=== PATIENT | male | born 1995 | race Caucasian/White ===

== ENCOUNTER 2018-04-13 16:55 | Emergency (ER) | payer BC ==
[2018-04-13 17:21] VITALS: BP 147/91; PULSE 89; RESP 20; TEMP 98.7
[2018-04-13] MEDS ORDERED: CEPHALEXIN 500MG STARTER PACK 4 CAP BTL PO STA (18:34)
[2018-04-13] MEDS ORDERED: SULFAMETH-TMP DS STARTER PACK 2 TAB BTL PO STA (18:35)
--- NOTE | 2018-04-13 18:50 | ED ---
General Adult HPI - General Chief complaint: Skin/Abscess/Foreign Body Stated complaint: Knee Infection, Pain Time Seen by Provider: 04/13/18 17:45 Source: patient, RN notes reviewed Mode of arrival: ambulatory Limitations: no limitations - History of Present Illness Initial comments: 22-year-old male presents for abscess on the right knee 4 days. Patient states this started as a "ingrown hair." He states that over the past couple days it has worsened. He states today it started to have spreading redness surrounding it. He states his family member told him to come in for antibiotics. He denies fevers or chills. Patient denies any pain with flexing the right knee. Patient denies any other complaints at this time.Patient has no other complaints at this time including shortness of breath, chest pain, abdominal pain, nausea or vomiting, headache, or visual changes. - Related Data Previous Rx's Medication Instructions Recorded HYDROcodone/APAP 7.5-325MG [[place] 1 - 2 each PO Q6HR PRN #60 tab 12/03/13 7.5] Famotidine [Pepcid] 20 mg PO BID #20 tablet 11/17/15 diphenhydrAMINE [Benadryl] 1 - 2 tab PO Q6HR PRN #30 capsule 11/17/15 predniSONE 60 mg PO DAILY 5 Days tab 11/17/15 Cephalexin [Keflex] 500 mg PO Q6HR 10 Days cap 04/13/18 Sulfamethox-Tmp 800-160Mg [Bactrim 2 tab PO Q12HR 10 Days #40 tab 04/13/18 DS 800-160 mg] Allergies Allergy/AdvReac Type Severity Reaction Status Date / Time No Known Allergies Allergy Verified 04/13/18 17:21 Review of Systems ROS Statement: Those systems with pertinent positive or pertinent negative responses have been documented in the HPI. ROS Other: All systems not noted in ROS Statement are negative. Past Medical History Past Medical History: No Reported History Additional Past Medical History / Comment(s): INJURY TO LEFT KNEE ON 11/05/2013. History of Any Multi-Drug Resistant Organisms: None Reported Past Surgical History: Adenoidectomy, Tonsillectomy Past Anesthesia/Blood Transfusion Reactions: No Reported Reaction Past Psychological History: No Psychological Hx Reported Smoking Status: Never smoker Past Alcohol Use History: None Reported Past Drug Use History: None Reported - Past Family History Father Family Medical History: Cancer General Exam Limitations: no limitations General appearance: alert, in no apparent distress Head exam: Present: atraumatic, normocephalic, normal inspection Eye exam: Present: normal appearance, PERRL, EOMI. Absent: scleral icterus, conjunctival injection, periorbital swelling ENT exam: Present: normal exam, mucous membranes moist Neck exam: Present: normal inspection, full ROM. Absent: tenderness, meningismus, lymphadenopathy Respiratory exam: Present: normal lung sounds bilaterally. Absent: respiratory distress, wheezes, rales, rhonchi, stridor Cardiovascular Exam: Present: regular rate, normal rhythm, normal heart sounds. Absent: systolic murmur, diastolic murmur, rubs, gallop, clicks Extremities exam: Present: full ROM (She has full range motion of the right knee with flexion and extension.), normal capillary refill (Refill less than 2 seconds. DP pulse 2+ in the right lower extremity), other (Patient has a 2 cm x 1 cm abscess noted to the inferior anterior right knee. There is erythema from the inferior right knee down to the mid right tib-fib insistent with cellulitis. no significant cellulitis on the knee joint..). Absent: joint swelling (No edema noted of the right knee) Neurological exam: Present: alert, oriented X3, CN II-XII intact Psychiatric exam: Present: normal affect, normal mood Course Vital Signs 04/13/18 17:19 Temperature 98.7 F Pulse Rate 89 Respiratory 20 Rate Blood Pressure 147/91 O2 Sat by Pulse 99 Oximetry Procedures - Incision & Drainage Consent Obtained: verbal consent Site: lower extremity Size (cm): 2 Anesthetic Used: lidocaine 1% Amount (mLs): 1 I&D Cleaning Method: Chloroprep Sterile Field Used?: Yes Scalpel Used: #11 I&D Drainage Obtained: Pus Culture Obtained?: Yes Patient Tolerated Procedure: well, no complications Medical Decision Making - Medical Decision Making 22-year-old male presents to the emergency department for a chief complaint of abscess to the right knee. This has been present for about 4 days. Today pain worsen and he started spreading redness. Patient does have a 2 cm abscess to the right knee that was incised and drained with a moderate amount of pus expelled. He does have erythema extending from the inferior right knee down to the mid tib-fib. Patient has full range motion of the right knee, no concern for a septic joint at this time. However I did discuss with patient to come back if he has pain with flexion of the right knee. Patient will be given Keflex and Bactrim. Area was marked with a black marker by nurse. Patient was told to watch for spreading redness and return if this occurs. I did mention that over the next 24 hours it may spread somewhat past the black lines until antibiotics kick in but should not be excessively spreading. Patient to follow up with primary care in the next 1-2 days and to return if he has worsening symptoms. Disposition Clinical Impression: Cellulitis and abscess of leg Disposition: HOME SELF-CARE Condition: Good Instructions (If sedation given, give patient instructions): Cellulitis (ED), Abscess (ED), Warm Compress or Soak (ED) Additional Instructions: Please take antibiotic as directed. Please use warm compresses on abscess for 20 minutes every few hours. Please monitor for worsening spreading redness and return here if this occurs. Return if you have pain with bending the right knee. Return if you have any other worsening symptoms. Prescriptions: Cephalexin [Keflex] 500 mg PO Q6HR 10 Days cap Sulfamethox-Tmp 800-160Mg [Bactrim DS 800-160 mg] 2 tab PO Q12HR 10 Days #40 tab Is patient prescribed a controlled substance at d/c from ED?: No Referrals: Faye Salazar MD [Primary Care Provider] - 1-2 days Time of Disposition: 18:34
== END 2018-04-13 18:59 | disposition home or self-care (01) ==
LOC: EC 16:55
DX: L03.115 Cellulitis of right lower limb (principal); L02.415 Cutaneous abscess of right lower limb
CPT/HCPCS: 10060; 87070; 87205; 99283

== ENCOUNTER 2019-05-06 00:08 | Emergency (ER) | payer BC, MEDICAID ==
[2019-05-06 00:12] VITALS: BP 132/79; PULSE 78; RESP 18; TEMP 98.4
[2019-05-06] MEDS ORDERED: predniSONE 50 MG TAB PO STA (00:58)
[2019-05-06] MEDS ORDERED: FAMOTIDINE 20 MG TAB PO STA (00:58)
--- NOTE | 2019-05-06 01:02 | ED ---
Skin/Abscess/FB HPI - General Chief complaint: Skin/Abscess/Foreign Body Stated complaint: Allergic Reaction Time Seen by Provider: 05/06/19 00:30 Source: patient Limitations: no limitations - History of Present Illness Initial comments: 23-year-old male patient presents to the emergency department today for evaluation of generalized itching, worse over his back. Patient states this started a few hours ago. He did take Benadryl 2 hours ago without relief. Patient denies any rash. States he did recently get new clothes however they were brand-new. He denies any other new exposures including soaps, lotions, detergents, medications, or foods. Patient states he has no known ALLERGIES. He denies any abdominal pain, nausea, vomiting, yellow skin discoloration, change to his stools or urine. Denies any fever or chills. Denies any upper respiratory symptoms. Patient denies any lip, tongue, or throat swelling. - Related Data Previous Rx's Medication Instructions Recorded HYDROcodone/APAP 7.5-325MG [[place] 1 - 2 each PO Q6HR PRN #60 tab 12/03/13 7.5] Famotidine [Pepcid] 20 mg PO BID #20 tablet 11/17/15 diphenhydrAMINE [Benadryl] 1 - 2 tab PO Q6HR PRN #30 capsule 11/17/15 predniSONE [Deltasone] 60 mg PO DAILY 5 Days tab 11/17/15 Cephalexin [Keflex] 500 mg PO Q6HR 10 Days cap 04/13/18 Sulfamethox-Tmp 800-160Mg [Bactrim 2 tab PO Q12HR 10 Days #40 tab 04/13/18 DS 800-160 mg] Famotidine [Pepcid] 20 mg PO DAILY #3 tablet 05/06/19 predniSONE 50 mg PO DAILY #3 tab 05/06/19 Allergies Allergy/AdvReac Type Severity Reaction Status Date / Time No Known Allergies Allergy Verified 05/06/19 00:09 Review of Systems ROS Statement: Those systems with pertinent positive or pertinent negative responses have been documented in the HPI. ROS Other: All systems not noted in ROS Statement are negative. Past Medical History Past Medical History: No Reported History Additional Past Medical History / Comment(s): INJURY TO LEFT KNEE ON 11/05/2013. History of Any Multi-Drug Resistant Organisms: None Reported Past Surgical History: Adenoidectomy, Tonsillectomy Past Anesthesia/Blood Transfusion Reactions: No Reported Reaction Past Psychological History: No Psychological Hx Reported Smoking Status: Never smoker Past Alcohol Use History: None Reported Past Drug Use History: None Reported - Past Family History Father Family Medical History: Cancer General Exam Limitations: no limitations General appearance: alert, in no apparent distress, other (this is a well- developed, well-nourished adult male patient in no acute distress.) Eye exam: Present: normal appearance, PERRL, EOMI. Absent: scleral icterus, conjunctival injection, periorbital swelling ENT exam: Present: normal exam, normal oropharynx, mucous membranes moist Respiratory exam: Present: normal lung sounds bilaterally. Absent: respiratory distress, wheezes, rales, rhonchi, stridor Cardiovascular Exam: Present: regular rate, normal rhythm, normal heart sounds. Absent: systolic murmur, diastolic murmur, rubs, gallop, clicks GI/Abdominal exam: Present: soft, normal bowel sounds. Absent: distended, tenderness, guarding, rebound, rigid Neurological exam: Present: alert, oriented X3, CN II-XII intact Psychiatric exam: Present: normal affect, normal mood Skin exam: Present: warm, dry, intact, normal color. Absent: rash Course Vital Signs 05/06/19 00:09 Temperature 98.4 F Pulse Rate 78 Respiratory 18 Rate Blood Pressure 132/79 O2 Sat by Pulse 99 Oximetry Medical Decision Making - Medical Decision Making 23-year-old male patient presented for evaluation of itching. Physical examination is unremarkable. There is no rash. He will be discharged with prescription for Pepcid and prednisone. He is instructed take Benadryl every 6 hours as needed. Return parameters were discussed in detail. He verbalizes understanding and agrees with this plan. Disposition Clinical Impression: Itching, Allergic reaction Disposition: HOME SELF-CARE Condition: Good Instructions (If sedation given, give patient instructions): General Allergic Reaction (ED) Additional Instructions: Continue taking Benadryl every 6 hours as needed. Complete other medications in full. Follow-up with primary care physician for recheck in 1-2 days. Return to the emergency department immediately for any new, worsening, or concerning symptoms. Prescriptions: Famotidine [Pepcid] 20 mg PO DAILY #3 tablet predniSONE 50 mg PO DAILY #3 tab Is patient prescribed a controlled substance at d/c from ED?: No Referrals: Faye Salazar MD [Primary Care Provider] - 1-2 days Time of Disposition: 01:01
== END 2019-05-06 01:15 | disposition home or self-care (01) ==
LOC: EC 00:08
DX: T78.40XA Allergy, unspecified, initial encounter (principal); L29.9 Pruritus, unspecified
CPT/HCPCS: 99283; J7512

== ENCOUNTER 2023-09-15 21:00 | Emergency (ER) | payer BC, MEDICAID ==
[2023-09-15 21:03] VITALS: RESP 18; TEMP 98.1
--- NOTE | 2023-09-15 21:15 | ED ---
Allergic Reaction HPI - General Chief complaint: Allergic Reaction Stated complaint: HIVES Time Seen by Provider: 09/15/23 21:15 Source: patient, RN notes reviewed Mode of arrival: ambulatory Limitations: no limitations - History of Present Illness Initial Comments: This is a 28-year-old male presents emergency department chief complaint of a generalized widespread rash over the patient's body that started this morning. Patient states that this rash is itchy and has been spreading approximately. He is taken multiple doses of Benadryl today with minimal relief. He denies symptoms of shortness of breath, tongue swelling, lip swelling, dizziness lightheadedness, chest pain, or pressure. He states he was helping a friend clean their boat with a new wax and believes this may have caused an allergic reaction. MD Complaint: hives - Related Data Previous Rx's Medication Instructions Recorded HYDROcodone/APAP 7.5-325MG [[place] 1 - 2 each PO Q6HR PRN #60 tab 12/03/13 7.5] Famotidine [Pepcid] 20 mg PO BID #20 tablet 11/17/15 diphenhydrAMINE [Benadryl] 1 - 2 tab PO Q6HR PRN #30 capsule 11/17/15 predniSONE [Deltasone] 60 mg PO DAILY 5 Days tab 11/17/15 Cephalexin [Keflex] 500 mg PO Q6HR 10 Days cap 04/13/18 Sulfamethox-Tmp 800-160Mg [Bactrim 2 tab PO Q12HR 10 Days #40 tab 04/13/18 DS 800-160 mg] Famotidine [Pepcid] 20 mg PO DAILY #3 tablet 05/06/19 predniSONE 50 mg PO DAILY #3 tab 05/06/19 predniSONE 50 mg PO DAILY #5 tab 09/15/23 Allergies Allergy/AdvReac Type Severity Reaction Status Date / Time cold and flu Allergy Rash/Hives Uncoded 09/15/23 21:03 Review of Systems ROS Statement: Those systems with pertinent positive or pertinent negative responses have been documented in the HPI. ROS Other: All systems not noted in ROS Statement are negative. Past Medical History Past Medical History: No Reported History Additional Past Medical History / Comment(s): INJURY TO LEFT KNEE ON 11/05/2013. History of Any Multi-Drug Resistant Organisms: None Reported Past Surgical History: Adenoidectomy, Tonsillectomy Past Anesthesia/Blood Transfusion Reactions: No Reported Reaction Past Psychological History: No Psychological Hx Reported Smoking Status: Never smoker Past Alcohol Use History: None Reported Past Drug Use History: None Reported - Past Family History Father Family Medical History: Cancer General Exam Limitations: no limitations General appearance: alert, in no apparent distress Head exam: Present: atraumatic, normocephalic, normal inspection Eye exam: Present: normal appearance, PERRL, EOMI. Absent: scleral icterus, conjunctival injection, periorbital swelling ENT exam: Present: normal exam, mucous membranes moist Neck exam: Present: normal inspection. Absent: tenderness, meningismus, lymphadenopathy Respiratory exam: Present: normal lung sounds bilaterally. Absent: respiratory distress, wheezes, rales, rhonchi, stridor Cardiovascular Exam: Present: regular rate, normal rhythm, normal heart sounds. Absent: systolic murmur, diastolic murmur, rubs, gallop, clicks GI/Abdominal exam: Present: soft, normal bowel sounds. Absent: distended, tenderness, guarding, rebound, rigid Extremities exam: Present: normal inspection, full ROM, normal capillary refill. Absent: tenderness, pedal edema, joint swelling, calf tenderness Back exam: Present: normal inspection Skin exam: Present: warm, dry, intact, rash, urticaria (widespread over the abdomen, bilateral UE and LE, abdomen and back) Course Vital Signs 09/15/23 09/15/23 21:01 22:23 Temperature 98.1 F Pulse Rate 83 69 Respiratory 18 18 Rate Blood Pressure 123/78 113/69 O2 Sat by Pulse 100 99 Oximetry Medical Decision Making - Medical Decision Making Was pt. sent in by a medical professional or institution (, PA, HIDE CURER, urgent care, hospital, or correction...) When possible be specific @ -No Did you speak to anyone other than the patient for history (EMS, parent, family, police, friend...)? What history was obtained from this source @ -No Did you review nursing and triage notes (agree or disagree)? Why? @ -I reviewed and agree with nursing and triage notes Were old charts reviewed (outside hosp., previous admission, EMS record, old EKG, old radiological studies, urgent care reports/EKG's, correction records)? Report findings @ -No old charts were reviewed Differential Diagnosis (chest pain, altered mental status, abdominal pain women, abdominal pain men, vaginal bleeding, weakness, fever, dyspnea, syncope, h eadache, dizziness, GI bleed, back pain, seizure, CVA, palpatations, mental health, musculoskeletal)? @ -urticaria, allergic reaction, contact dermatitis, this list is not all inclusive EKG interpreted by me (3pts min.). @ -None X-rays interpreted by me (1pt min.). @ -None done CT interpreted by me (1pt min.). @ -None done U/S interpreted by me (1pt. min.). @ -None done What testing was considered but not performed or refused? (CT, X-rays, U/S, labs)? Why? @ -None What meds were considered but not given or refused? Why? @ -None Did you discuss the management of the patient with other professionals (professionals i.e. , PA, HIDE CURER, lab, RT, psych nurse, social service worker, set up inspector, teacher, radio electronics officer, complex case manager)? Give summary @ -No Was smoking cessation discussed for >3mins.? @ -No Was critical care preformed (if so, how long)? @ -No Were there social determinants of health that impacted care today? How? (Homelessness, low income, unemployed, alcoholism, drug addiction, transportation, low edu. Level, literacy, decrease access to med. care, custodial, rehab)? @ -No Was there de-escalation of care discussed even if they declined (Discuss DNR or withdrawal of care, Hospice)? DNR status @ -No What co-morbidities impacted this encounter? (DM, HTN, Smoking, COPD, CAD, Cancer, CVA, ARF, Chemo, Hep., AIDS, mental health diagnosis, sleep apnea, morbid obesity)? @ -None Was patient admitted / discharged? Hospital course, mention meds given and route, prescriptions, significant lab abnormalities, going to OR and other pertinent info. @ -Discharge. 28-year-old male with widespread generalized rash. On examination patient noted to have urticaria over the body most notable over the abdomen. Patient states that this rash is pruritic. He is resting comfortably on examination and vitals are within normal limits. There are no signs of angioedema or difficulty breathing. He is treated with steroids and Pepcid. Benadryl is held due to patient taking multiple doses at home [id number] today. On reevaluation, patient states that. This has improved after steroid administration. He will be sent a prescription for a short course of steroids and instructed to continue Benadryl use at home as needed. Questions answered and strict return parameters discussed with the patient he is verbalized understanding. Discussed with Dr. Lagos Undiagnosed new problem with uncertain prognosis? @ -No Drug Therapy requiring intensive monitoring for toxicity (Heparin, Nitro, Insulin, Cardizem)? @ -No Were any procedures done? @ -No Diagnosis/symptom? @ -urticaria Acute, or Chronic, or Acute on Chronic? @ -acute Uncomplicated (without systemic symptoms) or Complicated (systemic symptoms)? @ -uncomplicated Side effects of treatment? @ -No Exacerbation, Progression, or Severe Exacerbation? @ -No Poses a threat to life or bodily function? How? (Chest pain, [place], [place], pneumonia, PE, COPD, DKA, ARF, appy, cholecystitis, CVA, Diverticulitis, Homicidal, Suicidal, threat to staff... and all critical care pts) @ -No Disposition Clinical Impression: Urticaria Disposition: HOME SELF-CARE Condition: Good Instructions (If sedation given, give patient instructions): Urticaria (ED) Additional Instructions: Complete full course of steroids as prescribed. Return to the emergency department if your symptoms worsen or not improved. Prescriptions: predniSONE 50 mg PO DAILY #5 tab Is patient prescribed a controlled substance at d/c from ED?: No Referrals: Faye Salazar MD [Primary Care Provider] - 1-2 days Time of Disposition: 22:15
[2023-09-15] MEDS: FAMOTIDINE 20 MG TAB PO STA (21:22)
[2023-09-15] MEDS: methylPREDNISolone SOD SUCCI 125 MG/2 ML VIAL IM ONE (21:22)
[2023-09-15 22:33] VITALS: BP 113/69; PULSE 69
== END 2023-09-15 22:23 | disposition home or self-care (01) ==
LOC: EC 21:00
DX: L50.0 Allergic urticaria (principal); Z91.048 Other nonmedicinal substance allergy status
CPT/HCPCS: 99283; 96372; J2919